=== PATIENT | male | born 1980 | race Hispanic/Latino ===

== ENCOUNTER 2022-11-09 08:06 | Emergency (ER) | payer OTHER, SELFPAY ==
[2022-11-09] MEDS ORDERED: ASPIRIN 81 MG CHEWABLE TABLET ONE (08:27)
[2022-11-09 08:35] LABS: Absolute Lymphocytes (CBC) 2.2 K/uL (0.7-4.9); Hematocrit 46.5 % (39.6-49.0); Lymphocytes % 18.6 % (15.3-44.8); MCV 88.1 fL (80-100); MPV 7.1 fL (7.6-11.3); RBC Red Blood Cell Count 5.27 M/uL (4.33-5.43)
[2022-11-09 08:57] LABS: Magnesium 2.3 mg/dL (1.6-2.4); Troponin High Sensitivity 5.1 pg/mL (<58.9)
[2022-11-09] MEDS ORDERED: KETOROLAC 30 MG/ML INJ ONE (09:25)
[2022-11-09] MEDS ORDERED: MAGNES/ALUMIN/SIMET 30ML UCUP ONE (09:25)
[2022-11-09] MEDS ORDERED: LIDOCAINE VISCOUS 2% SOLN 15 ML UDC ONE (09:25)
--- NOTE | 2022-11-09 10:07 | RAD REPORT ---
EXAM DESCRIPTION: RAD - Chest Single View - 11/09/2022 8:57 am CLINICAL HISTORY: CHEST PAIN COMPARISON: None TECHNIQUE: AP portable chest image was obtained 11/09/2022 8:57 am . FINDINGS: No dense consolidations seen. Lung markings in the left base are fractionally increased co mpared to the right. Baseline for the patient is unknown. Low lung volumes are present in the left ba se finding may simply be atelectasis. Infiltrate is unlikely but needs to be correlated with clinical presentation. Hilar regions are within normal limits for shallow inspiration portable chest. Heart and vasculature are normal. No measurable pleural effusion and no pneumothorax. No acute bony abnormality seen. No acute aortic findings suspected. IMPRESSION: Baseline chest examination showing shallow inspiration. Minimal stranding in the left base is probably atelectasis. Minimal infiltrate is possible and needs correlation with clinical presentation.
--- NOTE | 2022-11-09 12:43 | ER ---
Nurse's Notes [facility] Name: William Leach Age: 42 yrs Sex: Male : 1980 Arrival Date: 11/09/2022 Time: 08:08 Bed 6 Private MD: Diagnosis: Chest pain, unspecified;Elevated blood-pressure reading, without diagnosis of hypertension Presentation: 11/09 08:10 Chief complaint: Patient states: Chest pain began this morning at 0400 - left arm ld1 numbness. Coronavirus screen: At this time, the client does not indicate any symptoms associated with coronavirus-19. Ebola Screen: No symptoms or risks identified at this time. Initial Sepsis Screen: Does the patient meet any 2 criteria? No. Patient's initial sepsis screen is negative. Does the patient have a suspected source of infection? No. Patient's initial sepsis screen is negative. Risk Assessment: Do you want to hurt yourself or someone else? Patient reports no desire to harm self or others. Onset of symptoms was November 09, 2022 at 08:12. 08:10 Method Of Arrival: Ambulatory ld1 08:10 Acuity: FRANCISCO JAVIER 3 ld1 Triage Assessment: 08:12 General: Appears in no apparent distress. uncomfortable, Behavior is cooperative, ld1 appropriate for age, anxious. Pain: Complains of pain in chest Pain radiates to left arm Pain currently is 10 out of 10 on a pain scale. Quality of pain is described as throbbing, Pain began suddenly, Is continuous. EENT: No signs and/or symptoms were reported regarding the EENT system. Neuro: Level of Consciousness is awake, alert, obeys commands, Oriented to person, place, time, situation. Cardiovascular: Capillary refill < 3 seconds Patient's skin is warm and dry. Chest pain is described as severe. Respiratory: Reports shortness of breath Airway is patent Respiratory effort is even, unlabored, Onset: The symptoms/episode began/occurred suddenly, the patient has moderate shortness of breath. GI: Abdomen is flat, non-distended. : No signs and/or symptoms were reported regarding the genitourinary system. Derm: No signs and/or symptoms reported regarding the dermatologic system. Musculoskeletal: No signs and/or symptoms reported regarding the musculoskeletal system. Historical: - Allergies: 08:12 No Known Allergies; ld1 - Home Meds: 08:12 None [Active]; ld1 - PMHx: 08:12 None; ld1 - PSHx: 08:12 None; ld1 - Immunization history:: Adult Immunizations up to date, Client reports receiving the 2nd dose of the Covid vaccine. - Social history:: Smoking status: Patient denies any tobacco usage or history of. Patient/guardian denies using alcohol. Screenin:26 [facility] ED Fall Risk Assessment (Adult) History of falling in the last 3 months, ko1 including since admission No falls in past 3 months (0 pts) Confusion or Disorientation No (0 pts) Intoxicated or Sedated No (0 pts) Impaired Gait No (0 pts) Mobility Assist Device Used No (0 pt) Altered Elimination No (0 pt) Score/Fall Risk Level 0 - 2 = Low Risk Oriented to surroundings, Maintained a safe environment, Educated pt \T\ family on fall prevention, incl call for assistance when getting out of bed, Assessed \T\ reinforced patient's understanding of fall precautions, Provided non-skid footwear, Hourly rounding (assess needs \T\ fall precautionary measures) done, Used ambulatory aids as needed (educated on \T\ assisted with), Used gait belt as appropriate. Abuse screen: Denies threats or abuse. Denies injuries from another. Nutritional screening: No deficits noted. Tuberculosis screening: No symptoms or risk factors identified. Assessment: 08:26 General: Appears distressed, uncomfortable, Behavior is cooperative, appropriate for ko1 age, anxious, restless. Pain: Complains of pain in left arm and chest. Neuro: No deficits noted. Cardiovascular: Rhythm is sinus rhythm. Respiratory: Airway is patent Trachea midline Respiratory effort is even, unlabored, Respiratory pattern is regular, Breath sounds are clear bilaterally. GI: No deficits noted. : No deficits noted. EENT: No deficits noted. Derm: No deficits noted. Musculoskeletal: No deficits noted. 10:42 Reassessment: Pt c/o continued left sided CP, rated 8/10, pt reports not wanting jl7 narcotics because he has to drive. ERD notified and gave VO for d-dimer to be sent, labs drawn and sent as ordered, awaiting results at this time. Pt updated and verbalizes understanding. Vital Signs: 08:10 Pulse 79; Resp 20; Temp 97.6(O); Pulse Ox 100% on R/A; Weight 77.11 kg; Height 5 ft. 8 ld1 in. (172.72 cm); Pain 10/10; 08:13 BP 134 / 84; ld1 08:33 BP 118 / 87; Pulse 95; Resp 20; Pulse Ox 97% ; Pain 10/10; ko1 08:45 BP 124 / 87; Pulse 70; Resp 18; Pulse Ox 97% ; ko1 09:00 BP 120 / 93; Pulse 77; Resp 15; Pulse Ox 98% ; jl7 10:00 BP 126 / 94; Pulse 73; Resp 15; Pulse Ox 98% ; jl7 10:46 BP 126 / 98; Pulse 67; Resp 15; Pulse Ox 98% ; Pain 8/10; jl7 10:53 BP 130 / 92; Pulse 70; Resp 18; Pulse Ox 97% ; ko1 12:10 BP 125 / 89; Pulse 69; Resp 18; Pulse Ox 98% ; ko1 08:10 Body Mass Index 25.85 (77.11 kg, 172.72 cm) ld1 ED Course: 08:08 Patient arrived in ED. rg4 08:10 Alphonse Goldberg DO is Attending Physician. ms3 08:12 Triage completed. ld1 08:12 Arm band placed on right wrist. ld1 08:25 Basic Metabolic Panel Sent. ko1 08:25 CBC with Diff Sent. ko1 08:25 Magnesium Sent. ko1 08:25 Troponin HS Sent. ko1 08:26 Cathi Gerard, RN is Primary Nurse. ko1 08:26 Patient has correct armband on for positive identification. Placed in gown. Bed in low ko1 position. Call light in reach. Side rails up X 1. Client placed on continuous cardiac and pulse oximetry monitoring. NIBP monitoring applied. school bus monitor on. 08:26 Inserted saline lock: 20 gauge in right antecubital area, using aseptic technique. ko1 Blood collected. 08:55 XRAY Chest (1 view) In Process Unspecified. EDMS 10:42 Repeat lab(s) drawn. by me, sent to lab. jl7 12:04 Awaiting lab results, [employer] tech reports the machine is coming back on line. jl7 12:43 Chauncey Spaulding MD is Referral Physician. ms3 12:48 No provider procedures requiring assistance completed. IV discontinued, intact, ko1 bleeding controlled, No redness/swelling at site. Pressure dressing applied. Administered Medications: 08:24 Drug: Aspirin Chewable Tablet 324 mg Route: PO; ko1 12:48 Follow up: Response: No adverse reaction ko1 09:24 Drug: Ketorolac 10 mg 10 mg Route: IVP; Site: right antecubital; ko1 12:48 Follow up: Response: No adverse reaction ko1 09:24 Drug: GI Cocktail without - (Maalox Suspension 30 ml, Lidocaine Liquid 2 % 15 ko1 ml) Route: PO; 12:47 Follow up: Response: No adverse reaction ko1 Medication: 10:42 VIS not applicable for this client. jl7 Outcome: 12:43 Discharge ordered by . ms3 12:48 Discharged to home ambulatory. ko1 12:48 Condition: stable 12:48 Discharge instructions given to patient, Instructed on discharge instructions, follow up and referral plans. Demonstrated understanding of instructions, follow-up care. 12:56 Patient left the ED. ko1 Signatures: Dispatcher [employer] EDMS Lorena Diehl rg4 Kar Oropeza, RN RN jl7 Alphonse Goldberg DO DO ms3 Shantelle Mason, RN RN ld1 Cathi Gerard, RN RN ko1 Corrections: (The following items were deleted from the chart) 08:12 08:12 PMHx: Unable to Obtain; ld1 ld1
--- NOTE | 2022-11-09 12:43 | EDPHYS ---
Physician Documentation [facility] Name: William Leach Age: 42 yrs Sex: Male : 1980 Arrival Date: 11/09/2022 Time: 08:08 Bed 6 Private MD: ED Physician Alphonse Goldberg HPI: 11/09 08:22 This 42 yrs old Male presents to ER via Ambulatory with complaints of Numbness Of Arm, ms3 Shortness Of Breath. 08:22 42-year-old male with no past medical history presents for shortness of breath, chest ms3 pain, left arm numbness that began at 4 AM. Patient states his pain 10/10 and described as throbbing/pressure. Patient denies alleviating or inciting factors. Patient endorses nausea, vomiting.. Historical: - Allergies: 08:12 No Known Allergies; ld1 - Home Meds: 08:12 None [Active]; ld1 - PMHx: 08:12 None; ld1 - PSHx: 08:12 None; ld1 - Immunization history:: Adult Immunizations up to date, Client reports receiving the 2nd dose of the Covid vaccine. - Social history:: Smoking status: Patient denies any tobacco usage or history of. Patient/guardian denies using alcohol. ROS: 08:22 Constitutional: Negative for fever, and chills. Neck: Negative for injury, pain, and ms3 swelling. 08:22 MS/Extremity: Negative for injury and deformity, Skin: Negative for injury, rash, and discoloration, Hematologic/Lymphatic: Negative for swollen nodes, abnormal bleeding, and unusual bruising. 08:22 Cardiovascular: Positive for chest pain. 08:22 Respiratory: Positive for shortness of breath. 08:22 All other systems are negative. Exam: 08:22 Constitutional: This is a well developed, well nourished patient who is awake, alert, ms3 and in no acute distress. Neck: Trachea midline, no cervical lymphadenopathy. Supple, full range of motion without nuchal rigidity, or vertebral point tenderness. No Meningismus. Chest/axilla: Normal chest wall appearance and motion. Nontender with no deformity. Cardiovascular: Regular rate and rhythm with a normal S1 and S2. No gallops, murmurs, or rubs. Normal PMI, no JVD. No pulse deficits. Respiratory: Lungs have equal breath sounds bilaterally, clear to auscultation and percussion. No rales, rhonchi or wheezes noted. No increased work of breathing, no retractions or nasal flaring. Abdomen/GI: Soft, non-tender, with normal bowel sounds. No distension or tympany. No guarding or rebound. No evidence of tenderness throughout. Skin: Warm, dry with normal turgor. Normal color with no rashes, no lesions, and no evidence of cellulitis. MS/ Extremity: Pulses equal, no cyanosis. Neurovascular intact. Full, normal range of motion. 08:24 ECG was reviewed by the Attending Physician. ms3 Vital Signs: 08:10 Pulse 79; Resp 20; Temp 97.6(O); Pulse Ox 100% on R/A; Weight 77.11 kg; Height 5 ft. 8 ld1 in. (172.72 cm); Pain 10/10; 08:13 BP 134 / 84; ld1 08:33 BP 118 / 87; Pulse 95; Resp 20; Pulse Ox 97% ; Pain 10/10; ko1 08:45 BP 124 / 87; Pulse 70; Resp 18; Pulse Ox 97% ; ko1 09:00 BP 120 / 93; Pulse 77; Resp 15; Pulse Ox 98% ; jl7 10:00 BP 126 / 94; Pulse 73; Resp 15; Pulse Ox 98% ; jl7 10:46 BP 126 / 98; Pulse 67; Resp 15; Pulse Ox 98% ; Pain 8/10; jl7 10:53 BP 130 / 92; Pulse 70; Resp 18; Pulse Ox 97% ; ko1 12:10 BP 125 / 89; Pulse 69; Resp 18; Pulse Ox 98% ; ko1 08:10 Body Mass Index 25.85 (77.11 kg, 172.72 cm) ld1 MDM: 08:21 Patient medically screened. ms3 08:22 Differential diagnosis: ACS vs PTX vs PE. PERC negative at this time. ms3 09:00 Independent interpretation of the following test(s) in the Emergency Department X-Ray: ms3 My interpretation is CXR image reviewed by me negative.. 11/09 08:20 Order name: Basic Metabolic Panel; Complete Time: 08:59 ms3 11/09 08:20 Order name: CBC with Diff; Complete Time: 08:59 ms3 11/09 08:20 Order name: Magnesium; Complete Time: 08:59 ms3 11/09 08:20 Order name: Troponin HS; Complete Time: 08:59 ms3 11/09 10:27 Order name: Troponin High Sensitivity; Complete Time: 12:33 jl7 11/09 10:35 Order name: D-Dimer; Complete Time: 12:33 jl7 11/09 08:20 Order name: XRAY Chest (1 view); Complete Time: 10:12 ms3 11/09 08:20 Order name: EKG; Complete Time: 08:21 ms3 11/09 08:20 Order name: Cardiac monitoring; Complete Time: 08:22 ms3 11/09 08:20 Order name: EKG - Nurse/Tech; Complete Time: 08:22 ms3 11/09 08:20 Order name: IV Saline Lock; Complete Time: 08:25 ms3 11/09 08:20 Order name: Labs collected and sent; Complete Time: 08:25 ms3 11/09 08:20 Order name: O2 Per Protocol; Complete Time: 08:22 ms3 11/09 08:20 Order name: O2 Sat Monitoring; Complete Time: 08:22 ms3 11/09 09:07 Order name: Repeat Cardiac Enzymes at: Repeat troponin at 1028; Complete Time: 10:33 ms3 EC:24 Rate is 68 beats/min. Rhythm is regular. QRS Cameron is Normal. NE interval is normal. QRS ms3 interval is normal. Clinical impression: Normal ECG. Interpreted by me. Reviewed by me. Administered Medications: 08:24 Drug: Aspirin Chewable Tablet 324 mg Route: PO; ko1 12:48 Follow up: Response: No adverse reaction ko1 09:24 Drug: Ketorolac 10 mg 10 mg Route: IVP; Site: right antecubital; ko1 12:48 Follow up: Response: No adverse reaction ko1 09:24 Drug: GI Cocktail without - (Maalox Suspension 30 ml, Lidocaine Liquid 2 % 15 ko1 ml) Route: PO; 12:47 Follow up: Response: No adverse reaction ko1 Disposition Summary: 11/09/22 12:43 Discharge Ordered Location: Home ms3 Condition: Stable ms3 Diagnosis - Chest pain, unspecified ms3 - Elevated blood-pressure reading, without diagnosis of hypertension ms3 Followup: ms3 - With: - When: 2 - 3 days - Reason: Recheck today's complaints Discharge Instructions: - Discharge Summary Sheet ms3 - Nonspecific Chest Pain, Adult ms3 - How to Take Your Blood Pressure, [id number] ms3 - Form - Blood Pressure Record Sheet ms3 Forms: - Medication Reconciliation Form ms3 - Thank You Letter ms3 - Antibiotic Education ms3 - Prescription Opioid Use ms3 - Work release form ko1 Signatures: Dispatcher [employer] EDAlphonse Acuña DO DO ms3 Shantelle Mason RN RN ld1 Cathi Gerard RN RN ko1 Corrections: (The following items were deleted from the chart) 08:12 08:12 PMHx: Unable to Obtain; ld1 ld1
[2022-11-09 13:14] VITALS: TEMP 97.6
[2022-11-09 13:24] VITALS: BP 125/89; O2SAT 98
== END 2022-11-09 12:56 | disposition home or self-care (01) ==
LOC: ER 08:06
DX: R07.89 Other chest pain (principal); R03.0 Elevated blood-pressure reading, without diagnosis of hypertension
CPT/HCPCS: 36415; 71045; 80048; 83735; 84484; 85025; 85379; 93005